=== PATIENT | male | born 1985 | race Caucasian/White ===

== ENCOUNTER 2018-11-25 23:55 | Emergency (ER) | payer OTHER ==
--- NOTE | 2018-11-26 00:54 | PDOC ---
History of Present Illness - General Chief Complaint: Blood Pressure Problem Stated Complaint: HYPERTENSION Time Seen by Provider: 11/26/18 00:53 - History of Present Illness Initial Comments: 11/26/18 00:53 Mr. Nesbitt is a 33 yo male w/ no pmh who presents for evaluation of high blood pressure. Patient reports he has not been to primary doctor in years - went to urgent care 4 weeks ago for viral illness and was found to have BP in 140's. Following this patient established care w/ PCP 2 weeks ago and BP has been improving however he has been checking BP daily. Found it to be elevated to 150 today and experienced 15 minutes of shaking which resolved. Also reports a 4 week history of sensation he describes as a "a finger pressing on his chest " however reports it is NOT pain or pressure. The patient denies shortness of breath, headache and dizziness. Denies fever, nausea, vomit, diarrhea and constipation. Denies dysuria, frequency, urgency and hematuria. Past History - Past Medical History Allergies/Adverse Reactions: Allergies Allergy/AdvReac Type Severity Reaction Status Date / Time No Known Allergies Allergy Verified 11/26/18 00:23 - Suicide/Smoking/Psychosocial Hx Smoking History: Never smoked Have you smoked in the past 12 months: No Information on smoking cessation initiated: No Hx Alcohol Use: No Drug/Substance Use Hx: No Review of Systems - Review of Systems Comments:: 11/26/18 00:54 GENERAL/CONSTITUTIONAL: +Shaking as described. No fever. No weakness. HEAD, EYES, EARS, NOSE AND THROAT: No change in vision. No ear pain or discharge. No sore throat. CARDIOVASCULAR: +Chest sensation as described. No shortness of breath RESPIRATORY: No cough, wheezing, or hemoptysis. GASTROINTESTINAL: No nausea, vomiting, diarrhea or constipation. GENITOURINARY: No dysuria, frequency, or change in urination. MUSCULOSKELETAL: No joint or muscle swelling or pain. No neck or back pain. SKIN: No rash NEUROLOGIC: No headache, vertigo, loss of consciousness, or change in strength/ sensation. ENDOCRINE: No increased thirst. No abnormal weight change HEMATOLOGIC/LYMPHATIC: No anemia, easy bleeding, or history of blood clots. ALLERGIC/IMMUNOLOGIC: No hives or skin allergy. *Physical Exam - Vital Signs Last Vital Signs Temp Pulse Resp BP Pulse Ox 99.3 F 100 H 18 160/89 100 11/25/18 23:55 11/25/18 23:55 11/25/18 23:55 11/25/18 23:55 11/25/18 23:55 - Physical Exam Comments: 11/26/18 00:54 GENERAL: Awake, alert, and fully oriented, in no acute distress HEAD: No signs of trauma, normocephalic, atraumatic EYES: PERRLA, EOMI, sclera anicteric, conjunctiva clear ENT: Auricles normal inspection, hearing grossly normal, nares patent, oropharynx clear without exudates. Moist mucosa NECK: Normal ROM, supple, no lymphadenopathy, JVD, or masses LUNGS: No distress, speaks full sentences, clear to auscultation bilaterally HEART: Regular rate and rhythm, normal S1 and S2, no murmurs, rubs or gallops, peripheral pulses normal and equal bilaterally. ABDOMEN: Soft, nontender, normoactive bowel sounds. No guarding, no rebound. No masses EXTREMITIES: Normal inspection, Normal range of motion, no edema. No clubbing or cyanosis. NEUROLOGICAL: Cranial nerves II through XII grossly intact. Normal speech, normal gait, no focal sensorimotor deficits SKIN: Warm, Dry, normal turgor, no rashes or lesions noted. ED Treatment Course - LABORATORY CBC & Chemistry Diagram: 11/26/18 01:39 11/26/18 01:39 Medical Decision Making - Medical Decision Making 11/26/18 03:50 Mr. Nesbitt is a 33 yo male w/ pmh as described who presents for evaluation of "chest sensation" and high BP noted at home. Patient evaluated with cardiac labs, EKG, and Chest XR. Patient EKG significant for S1Q3T3 raising concern for PE. Otherwise negative. D-Dimer performed for follow-up. All labs grossly wnl as below. CXR negative. EKG otherwise negative. No concern for acute process at this time. Discharging to home. Laboratory Results - last 24 hr 11/26/18 11/26/18 11/26/18 01:39 01:39 02:51 WBC 5.8 RBC 4.43 Hgb 14.2 Hct 40.7 MCV 91.9 MCH 32.0 MCHC 34.9 RDW 13.0 Plt Count 175 MPV 10.7 Absolute Neuts (auto) 4.1 Neutrophils % 71.6 Lymphocytes % 21.9 Monocytes % 5.3 Eosinophils % 0.8 Basophils % 0.4 Nucleated RBC % 0 D-Dimer < 215 Sodium 137 Potassium 4.3 Chloride 104 Carbon Dioxide 28 Anion Gap 5 L BUN 15 Creatinine 1.1 Creat Clearance w eGFR 77.09 Random Glucose 113 H Calcium 9.6 Total Bilirubin 0.5 AST 30 ALT 69 H Alkaline Phosphatase 49 Creatine Kinase 209 Creatine Kinase Index 0.4 CK-MB (CK-2) < 1.0 Troponin I < 0.02 Total Protein 8.1 Albumin 4.5 *DC/Admit/Observation/Transfer Diagnosis at time of Disposition: Sensation of chest pressure Hypertension Qualifiers: Hypertension type: unspecified Qualified Code(s): I10 - Essential (primary) hypertension - Discharge Dispostion Disposition: HOME Condition at time of disposition: Fair - Referrals - Patient Instructions Printed Discharge Instructions: DI for High Blood Pressure Additional Instructions: You were evaluated today in the ER for your chest sensations and high blood pressure. We evaluated you with labs, EKG, and chest xray with no concerning findings. Please follow-up in 1-2 days with primary care provider for further evaluation. Return to ER if any fever, chills, pain, or other concerning symptoms. - Post Discharge Activity
[2018-11-26 01:08] VITALS: BP 160/89; PULSE 100; TEMP 99.3; BMI 33.2
--- NOTE | 2018-11-26 01:39 | PDOC ---
Attending Attestation - HPI HPI: 11/26/18 01:40 The patient is a 33 year old male with no PMH who presents to the ER with elevated blood pressure. Patient states he was diagnosed with mildly elevated blood pressure approximately 1 month ago. Patient states he took a cough medicine about a month ago and when he saw his PCP, he was told his mildly elevated bp may be related to this medicine. Patient has been checking his blood pressure daily. He is no longer taking the cough medicine and has noticed any improvement in his blood pressure. Patient reports he was stressed today at work and measured his blood pressure at home, which was found to be elevated prompting him to the ER for further evaluation. Patient also admits to lightheadedness while at home. Patient denies any chest pain, shortness of breath, headache, abdominal pain, N/ V/D/C, paresthesias, or vision changes. Allergies: NKDA Surgeries: None reported. Social Hx: No reported alcohol, drug or cigarette use. - Physicial Exam PE: 11/26/18 01:40 ADULT PHYSICAL EXAM Constitutional: Awake, alert, oriented. No acute distress. Head: Normocephalic. Atraumatic Eyes: PERRL. EOMI. Conjunctivae are not pale. ENT: Mucous membranes are moist and intact. Posterior pharynx without exudates or erythema. Uvula midline. Cardiovascular: Regular rate. Regular rhythm. S1, S2 regular. Distal pulses are 2+ and symmetric. Pulmonary/Chest: No evidence of respiratory distress. Clear to auscultation bilaterally No wheezing, rales or rhonchi. Abdominal: Soft and non-distended. There is no tenderness. No rebound, guarding or rigidity. No organomegaly. No palpable masses. Good bowel sounds. Musculoskeletal: No edema. No cyanosis. No clubbing. Full range of motion in all extremities. Nocalf tenderness. Radial/pedal pulses are intact and 2+ bilaterally Skin: Skin is warm and dry. Neurological: Alert and oriented to person, place, and time. Cranial nerves II -XII are grossly intact. Psychiatric: Good eye contact. Normal interaction, affect and behavior. <Rama Gregg - Last Filed: 11/26/18 01:40> - Resident Resident Name: Og Ulloa - ED Attending Attestation I have performed the following: I have examined & evaluated the patient, The case was reviewed & discussed with the resident, I agree w/resident's findings & plan, Exceptions are as noted - Medical Decision Making 11/26/18 01:36 I, Dr. Kelley Stout, DO, attest that this document has been prepared under my direction and personally reviewed by me in its entirety. I further attest, that it accurately reflects all work, treatment, procedures and medical decision -making performed by me. 11/26/18 01:36 a/p: 33yo male with recent dx of mildly elevated bp about a month ago -states he has been checking his bp daily -states a month ago he was taking cough/cold medicine when he had elevated bp, could be from the medicine -states his bp has improved over the last month -today felt stressed at work, lightheaded on way home, checked bp and it was elevated, ate dinner, went to bed and woke up feeling cold all over, repeated bp and it was still elevated -no cp/sob -denies gil, cough, rhinorrhea, congestion, abd pain, no n/v/d, no vision changes , no paresthesias -no other complaints -will send labs, cxr, ekg 11/26/18 02:05 mild r heart strain pattern on ekg, will add dimer 11/26/18 02:07 labs pending, if labs negative and bp improved, cxr clear pt is stable for dc to home and follow up with Dr. Garcia from [facility] for bp management <Kelley Stout - Last Filed: 11/26/18 02:08> Heart Score/ECG Review - ECG Intrepretation Comment:: 11/26/18 02:03 sinus at 96, nl axis, nl interval, s1q3t3, no acute st/t wave findings <Kelley Stout - Last Filed: 11/26/18 02:08>
[2018-11-26 01:54] LABS: BASO % 0.4 % (0-2.0); EOS % 0.8 % (0-4.5); HEMATOCRIT 40.7 % (35.4-49); HEMOGLOBIN 14.2 GM/dL (11.7-16.9); LYMPH % 21.9 % (8-40); MCHC 34.9 g/dl (32.0-35.9); MEAN CELL VOLUME 91.9 fl (80-96); MEAN PLT VOLUME 10.7 fl (7.5-11.1); MONO % 5.3 % (3.8-10.2); NEUT % 71.6 % (42.8-82.8); PLATELET COUNT 175 K/MM3 (134-434); RBC 4.43 M/mm3 (4.00-5.60); WHITE BLOOD COUNT 5.8 K/mm3 (4.0-10.0)
[2018-11-26 02:22] LABS: ALBUMIN 4.5 g/dl (3.4-5.0); ALK PHOS 49 U/L (45-117); ANION GAP 5 MMOL/L (8-16); BILIRUBIN,TOTAL 0.5 mg/dL (0.2-1); BLOOD UREA NITROGEN 15 mg/dL (7-18); CALCIUM 9.6 mg/dL (8.5-10.1); CHLORIDE 104 mmol/L (98-107); CO2 28 mmol/L (21-32); CREATININE 1.1 mg/dL (0.55-1.3); GLUCOSE,RANDOM 113 mg/dL (74-106); POTASSIUM 4.3 mmol/L (3.5-5.1); SGOT/AST 30 U/L (15-37); SGPT/ALT 69 U/L (13-61); SODIUM 137 mmol/L (136-145); TOT PROT 8.1 g/dl (6.4-8.2)
--- NOTE | 2018-11-26 16:36 | EKG ---
Test Reason : Blood Pressure : / mmHG Vent. Rate : 096 BPM Atrial Rate : 096 BPM P-R Int : 160 ms QRS Dur : 094 ms QT Int : 354 ms P-R-T Axes : 054 025 029 degrees QTc Int : 447 ms NORMAL SINUS RHYTHM NORMAL ECG NO PREVIOUS ECGS AVAILABLE Confirmed by DAVION GUPTA MD ([id number]) on 11/26/2018 4:36:08 PM Referred By: Confirmed By:DAVION GUPTA MD
== END 2018-11-26 04:16 | disposition home or self-care (01) ==
LOC: JER 23:55
DX: R07.89 Other chest pain (principal); I10 Essential (primary) hypertension
CPT/HCPCS: 36415; 71046-TC-FY; 80053; 82550; 82553; 84484; 85025; 85379; 93005; 93010; 99281-25